=== PATIENT | female | born 1995 | race Caucasian/White ===

== ENCOUNTER 2023-02-10 22:28 | Emergency (ER) | payer SELFPAY ==
[~2023-02-10] VITALS: Ht 175.3 cm; Wt 90.0 kg
[2023-02-10 22:31] VITALS: BP 116/75; PULSE 85; RESP 20; TEMP 97.8; O2SAT 98
[2023-02-10] MEDS ORDERED: ONDANSETRON HCL 4MG/2ML INJ IV STA (22:36)
[2023-02-10] MEDS ORDERED: SODIUM CHLORIDE 0.9% 1,000 ML IV ONE (22:45)
[2023-02-10 23:06] LABS: CHLORIDE 106 mEq/L (98-107)
[2023-02-10 23:09] LABS: BASOPHILS % 0.3 % (0.0-2.0); EOSINOPHILS % 0.3 % (0.0-5.0); HCG SCREEN NEGATIVE; HEMATOCRIT. 39.2 % (36.0-48.0); HEMOGLOBIN. 12.9 g/dL (12.0-16.0); LYMPHOCYTES % 40.3 % (20.0-50.0); MEAN CORPUSCULAR HEMOGLOBIN 29.7 pg (28.0-32.0); MEAN CORPUSCULAR VOLUME 90.4 fL (81.0-99.0); MEAN PLATELET VOLUME 9.3 fl (7.4-10.4); NEUTROPHILS % 52.1 % (40.0-76.0); PLATELET 229 x1000/uL (130-400); RED BLOOD CELL COUNT 4.34 mill/uL (4.2-5.4); RED CELL DISTRIBUTION WIDTH 12.6 % (11.6-14.6)
[2023-02-10 23:13] LABS: ETHANOL BLOOD 219 mg/dL (-10)
[2023-02-11] MEDS ORDERED: ONDANSETRON 4MG ODT PO ONE (00:30)
[2023-02-11] MEDS ORDERED: MAGNESIUM/ALUMINUM HYDROXIDE/SIMETHICONE 30ML UDC PO ONE (00:30)
[2023-02-11] MEDS ORDERED: PANTOPRAZOLE SODIUM 40 MG/VIAL IV ONE (01:45)
[2023-02-11] MEDS ORDERED: ONDA4TAB50 MT (02:08)
[2023-02-11] MEDS ORDERED: PANT40SU MT (02:08)
== END 2023-02-11 02:19 | disposition home or self-care (01) ==
LOC: ER 22:28
DX: F10.129 Alcohol abuse with intoxication, unspecified (principal); R11.2 Nausea with vomiting, unspecified; Y90.7 Blood alcohol level of 200-239 mg/100 ml
CPT/HCPCS: 80053; 80307; 80329; 80320; 84703; 85025; 36415; 99283; J7030; Q0162; G0480